=== PATIENT | female | born 1995 | race Caucasian/White ===

== ENCOUNTER 2016-08-12 09:29 | Emergency (ER) | payer OTHER ==
[2016-08-12 09:36] VITALS: BP 119/59; PULSE 81; RESP 20; TEMP 97.9
[2016-08-12 10:05] LABS: Appearance,Urine Clear (Clear); Bacteria,Urine Rare /hpf; Bilirubin,Urine Negative (Negative); Glucose,Urine (UA) Negative (Negative); Ketones,Urine Negative (Negative); Leukocyte Esterase,Urine Large (Negative); Mucus,Urine Rare /hpf; Nitrite,Urine Negative (Negative); PH, Urine 5.5 (5.0-8.0); Particle Count 2797; Protein,Urine Negative (Negative); RBC,Urine 5 /hpf (0-5); Specific Gravity,Urine 1.024 (1.001-1.035); Squamous Epithelial Cell,Urine 3 /hpf (0-4); UA Billing (MACRO vs. MICRO) MICRO; Urobilinogen,Urine <2.0 mg/dL (<2.0); WBC,Urine 38 /hpf (0-5)
--- NOTE | 2016-08-12 10:06 | ED ---
Abdominal Pain HPI - General Chief Complaint: Urogenital Stated Complaint: Abd.pain Time Seen by Provider: 08/12/16 09:37 Source: patient, RN notes reviewed Mode of arrival: ambulatory Limitations: no limitations - History of Present Illness Initial Comments: This a 20-year-old female presents emergency Department chief complaint of lower abdominal pain. Patient states started yesterday and has not resolved. She states it does wax and wane. Patient states that she does have some urinary frequency but states that she doesn't always have a large amount. She denies any noted hematuria. Patient states she is currently on her menstrual cycle and does have control implant. Patient states that she is 4 months did follow-up with her 6 weeks for a checkup which showed no abnormality. Patient states that she had a delivery. Patient denies any nausea, vomiting diarrhea, constipation, fever, chills, flank pain. - Related Data Home Medications Medication Instructions Recorded Confirmed Acetaminophen Tab [Tylenol Tab] 1,000 mg PO Q6HR PRN 08/12/16 08/12/16 Etonogestrel [Nexplanon] 68 mg SQ ONCE 08/12/16 08/12/16 Previous Rx's Medication Instructions Recorded Ciprofloxacin HCl [Cipro] 500 mg PO Q12HR #14 tablet 08/12/16 Phenazopyridine [Pyridium] 200 mg PO TID #6 tablet 08/12/16 Allergies Allergy/AdvReac Type Severity Reaction Status Date / Time No Known Allergies Allergy Verified 08/12/16 09:56 Review of Systems ROS Statement: Those systems with pertinent positive or pertinent negative responses have been documented in the HPI. ROS Other: All systems not noted in ROS Statement are negative. Past Medical History Past Medical History: No Reported History History of Any Multi-Drug Resistant Organisms: None Reported Past Surgical History: No Surgical Hx Reported Past Psychological History: Anxiety, Depression Smoking Status: Never smoker Past Alcohol Use History: None Reported Past Drug Use History: None Reported General Exam Limitations: no limitations General appearance: alert, in no apparent distress Respiratory exam: Present: normal lung sounds bilaterally. Absent: respiratory distress, wheezes, rales, rhonchi, stridor Cardiovascular Exam: Present: regular rate, normal rhythm, normal heart sounds. Absent: systolic murmur, diastolic murmur, rubs, gallop, clicks GI/Abdominal exam: Present: soft, tenderness (Minimal suprapubic), normal bowel sounds. Absent: distended, guarding, rebound, rigid Back exam: Absent: CVA tenderness (R), CVA tenderness (L) Course Vital Signs 08/12/16 09:32 Temperature 97.9 F Pulse Rate 81 Respiratory 20 Rate Blood Pressure 119/59 O2 Sat by Pulse 97 Oximetry Medical Decision Making - Medical Decision Making 20-year-old female presented for lower abdominal pain urinary frequency. Patient has urinary tract infection. Patient be discharged with antibiotics, Pyridium return parameters were discussed. - Lab Data Lab Results 08/12/16 08/12/16 Range/Units 09:45 09:45 Urine Color Yellow Urine Appearance Clear (Clear) Urine pH 5.5 (5.0-8.0) Ur Specific [place] 1.024 (1.001-1.035) Urine Protein Negative (Negative) Urine Glucose (UA) Negative (Negative) Urine Ketones Negative (Negative) Urine Blood Small H (Negative) Urine Nitrite Negative (Negative) Urine Bilirubin Negative (Negative) Urine Urobilinogen <2.0 (<2.0) mg/dL Ur Leukocyte Esterase Large H (Negative) Urine RBC 5 (0-5) /hpf Urine WBC 38 H (0-5) /hpf Ur Squamous Epith Cells 3 (0-4) /hpf Urine Bacteria Rare H (None) /hpf Urine Mucus Rare H (None) /hpf Urine HCG, Qual Not Detected (Not Detectd) Disposition Clinical Impression: Urinary tract infection Disposition: HOME SELF-CARE Condition: Stable Instructions: Urinary Tract Infection in Women (ED) Additional Instructions: Please return to the Emergency Department if symptoms worsen or any other concerns. Prescriptions: Ciprofloxacin HCl [Cipro] 500 mg PO Q12HR #14 tablet Phenazopyridine [Pyridium] 200 mg PO TID #6 tablet Referrals: John Freedman DO [Primary Care Provider] - 1-2 days
== END 2016-08-12 10:26 | disposition home or self-care (01) ==
LOC: EC 09:29
DX: N39.0 Urinary tract infection, site not specified (principal); Z79.3 Long term (current) use of hormonal contraceptives
CPT/HCPCS: 81001; 81025; 87086; 99284

== ENCOUNTER → 2020-07-07 | Outpatient (CLI) | payer OTHER ==
--- NOTE | 2020-07-07 12:06 | XR ---
EXAMINATION TYPE: XR chest 2V DATE OF EXAM: 07/07/2020 COMPARISON: None HISTORY: Crackles in lungs per DrAlfredo for 6 days with fever, cough and sore throat TECHNIQUE: Frontal and lateral views of the chest are obtained. FINDINGS: Heart size is within normal limits. Trachea is midline. No focal consolidation, pneumothor ax or pleural effusion. Osseous structures appear unremarkable. IMPRESSION: 1. No acute pulmonary disease.
== END | disposition home or self-care (01) ==
LOC: RADXRMAIN 11:31
PROVIDERS: ATTEND Family Medicine
DX: J02.9 Acute pharyngitis, unspecified (principal); R50.9 Fever, unspecified; R05 Cough
CPT/HCPCS: 71046

== ENCOUNTER → 2021-09-11 | Outpatient (CLI) | payer OTHER ==
--- NOTE | 2021-09-11 15:32 | XR ---
Left knee HISTORY: Pain 3 views of the left knee Bone mineralization, joint spaces and alignment are maintained. No evident fracture or dislocation. N o evident joint effusion. IMPRESSION: No acute abnormality. No significant arthropathy.
== END | disposition home or self-care (01) ==
LOC: RADXRMAIN 11:34
PROVIDERS: ATTEND Family Medicine
DX: M25.562 Pain in left knee (principal)